=== PATIENT | male | born 1980 | race Caucasian/White ===

== ENCOUNTER 2017-09-04 18:13 | Emergency (ER) | payer OTHER ==
[2017-09-04 18:19] VITALS: RESP 18
[2017-09-04] MEDS ORDERED: IBUPROFEN 600 MG TAB PO ONE (18:40)
--- NOTE | 2017-09-04 18:42 | EDPHY ---
H & P Stated Complaint: congestion and fevers starting yesterday morning Time Seen by Provider: 09/04/17 18:25 HPI/ROS: CHIEF COMPLAINT: Fever, myalgias, headache HISTORY OF PRESENT ILLNESS: The patient presents the ED with a 1 day history of subjective fever, myalgias, mild frontal headache and nasal congestion. The patient denies significant past medical history. He specifically denies recent travel outside the [place], history of lung disease or diabetes. The patient reports a mild occasional cough. The patient denies any acute numbness or weakness. The patient does have a mild frontal headache without complaints of neck stiffness. REVIEW OF SYSTEMS: A comprehensive 10 point review of systems is otherwise negative aside from elements mentioned in the history of present illness. Source: Patient Exam Limitations: No limitations - Personal History Current Tetanus/Diphtheria Vaccine: No Current Tetanus Diphtheria and Acellular Pertussis (TDAP): No - Medical/Surgical History Hx Asthma: No Hx Chronic Respiratory Disease: No Hx Diabetes: No Hx Cardiac Disease: No Hx Renal Disease: No Hx Cirrhosis: No Hx Alcoholism: No Hx HIV/AIDS: No Hx Splenectomy or Spleen Trauma: No Other PMH: chronic sinusitis and sinus sx. skin CA T-cell lymphoma. tonsilectomy. adenoidectomy - Social History Smoking Status: Never smoked - Physical Exam Exam: General Appearance: Alert, no distress Eyes: Pupils equal and round no pallor or injection ENT, Mouth: Mild pharyngeal erythema Respiratory: There are no retractions, lungs are clear to auscultation Cardiovascular: Regular rate and rhythm Gastrointestinal: Abdomen is soft and nontender, no masses, bowel sounds normal Neurological: A&O, normal motor function, normal sensory exam, normal cranial nerves Skin: Warm and dry, no rashes Musculoskeletal: Neck is supple nontender Extremities: symmetrical, full range of motion Constitutional: Initial Vital Signs Temperature (C) 38.7 C H 09/04/17 18:15 Heart Rate 91 09/04/17 18:15 Respiratory Rate 18 09/04/17 18:15 Blood Pressure 147/84 H 09/04/17 18:15 O2 Sat (%) 94 09/04/17 18:15 O2 Delivery Mode Room Air Allergies/Adverse Reactions: No Known Allergies Allergy (Unverified 09/04/17 18:15) Home Medications: Medication Instructions Recorded Oseltamivir Phosphate [Tamiflu] 75 mg PO BID #10 cap 09/04/17 Medical Decision Making ED Course/Re-evaluation: The patient presents to the ED for evaluation of a flu-like illness. The patient's symptoms have been present for the past 24 hr. The patient has no clinical evidence of meningitis. The patient is noted to have evidence of influenza B. The patient received Tamiflu in the emergency department. Patient also received ibuprofen. The patient has no clinical evidence of pneumonia or hypoxemia. The patient is well-appearing and well-hydrated. The patient will be treated with Tamiflu and given a prescription for [place]. He is advised to return to the emergency department for markedly worsening symptoms or other concerns. I re-evaluated the patient at 8:05 p.m.. The patient is informed of his diagnosis, treatment plan and return precautions. Differential Diagnosis: Differential diagnosis considered includes influenza, viral syndrome, dehydration, metabolic abnormality, pneumonia - Data Points Laboratory Results: 09/04/17 18:27 Nasal Influenza A PCR NEGATIVE FOR FLU A (NEGATIVE) Nasal Influenza B PCR FLU B DETECTED H (NEGATIVE) Medications Given: Discontinued Medications Ibuprofen (Motrin) 600 mg PO EDNOW ONE Stop: 09/04/17 18:41 Last Admin: 09/04/17 18:53 Dose: 600 mg Departure - Departure Disposition: Home, Routine, Self-Care Clinical Impression: Influenza Condition: Good Instructions: Influenza (ED) Additional Instructions: 1. Tamiflu as directed for influenza infection 2. Take Ibuprofen or Motrin 600 mg by mouth three times a day. 3. [place] as needed for severe pain. Do not take more than 3 g of Tylenol each day. There is Tylenol in [place]. 4. Please return to the ED for markedly worsening symptoms or other concerns. Referrals: Nathan Mike MD [Primary Care Provider] - As per Instructions Prescriptions: Oseltamivir Phosphate [Tamiflu] 75 mg PO BID #10 cap
[2017-09-04] MEDS ORDERED: OSELTAMIVIR PHOSPHATE 75 MG CAP PO ONE (19:53)
[2017-09-04] MEDS ORDERED: HYDROCOD/APAP 5/325 PREPACK#6 BTL TAKEHOME ONE (20:06)
[2017-09-04 20:07] VITALS: BP 150/102; PULSE 85; TEMP 99.3; O2SAT 93
== END 2017-09-04 20:17 | disposition home or self-care (01) ==
DX: J10.1 Influenza due to other identified influenza virus with other respiratory manifestations (principal)